=== PATIENT | female | born 1960 | race Caucasian/White ===

== ENCOUNTER 2022-07-06 08:55 | Emergency (ER) | payer MEDICAID, OTHER ==
[~2022-07-06] VITALS: Ht 167.6 cm; Wt 54.4 kg
--- NOTE | 2022-07-06 09:09 | NUR ---
BIBS C/O CHRONIC BACK AND STATING THAT DUE TO THE BACK PAIN SHE HAD BEEN FEELING DEPRESSED AND ANXIOUS. PT DENIES SUICIDAL IDEATION. VITALS ARE WITHIN NORMAL LIMITS. AWAITING MD WADE.
[2022-07-06] MEDS ORDERED: LIDOCAINE 5% (PATCH) 1 EA PATCH TP SCH (10:00)
[2022-07-06] MEDS ORDERED: METHOCARBAMOL (750MG) 750 MG TABLET PO SCH (10:00)
[2022-07-06] MEDS ORDERED: ACETAMINOPHEN ES 500 MG TABLET PO ONE (10:00)
[2022-07-06] MEDS ORDERED: LIDOCAINE 5% (PATCH) 1 EA PATCH TP ONE (10:12)
[2022-07-06] MEDS ORDERED: METH-649 PO (10:12)
[2022-07-06] MEDS ORDERED: METHOCARBAMOL (500MG) 500 MG TABLET ONE (10:13)
[2022-07-06] MEDS ORDERED: ACETAMINOPHEN ES 500 MG TABLET ONE (10:13)
--- NOTE | 2022-07-06 11:01 | NUR ---
Patient discharged to home in stable condition. Written and verbal after care instructions given. Patient verbalizes understanding of instruction.
[2022-07-06 11:04] VITALS: BP 143/95
== END 2022-07-06 11:04 | disposition home or self-care (01) ==
LOC: ER 09:00
DX: M54.6 Pain in thoracic spine (principal); F41.9 Anxiety disorder, unspecified; F32.A Depression, unspecified; Z60.2 Problems related to living alone